=== PATIENT | female | born 1990 | race Caucasian/White ===

== ENCOUNTER → 2017-07-09 | Outpatient (CLI) | payer BC ==
[~2017-07-09] MED LIST: CEPH500C24 PO; INSU100V24 SQ; LANI SUBQ
--- NOTE | 2017-07-09 19:41 | RADIOLOGY IMAGING REPORT ---
FAC[facility] PATIENT NAME: Cari Angulo : 1990 MR: [id number] V: [id number] EXAM DATE: ORDERING PHYSICIAN: ANIBAL MÁRQUEZ TECHNOLOGIST: Location: [facility] Patient: Cari Angulo : 1990 Visit/Account:[id number] Date of Sevice: 07/09/2017 EXAMINATION: SOFT TISSUE NON-SPECIFIC HISTORY: Left orbit soft tissue mass, discoloration in medial corner of eye, near nose, for 3 days. COMPARISON: None. FINDINGS: Grayscale and color Doppler ultrasound was performed of the left orbit. Comparison images o f the right orbit were also obtained. There is a focal hypoattenuating region in the soft tissues along the medial aspect of the upper eyel id and adjacent to the nose measuring 7 x 4 x 7 mm in the area of noted palpable lump. No discrete ab scess or definite mass is identified. IMPRESSION: There appears to be focal soft tissue swelling in the left medial periorbital soft tissues and adjace nt to the left side of the nose with no discrete abscess or definite mass identified. Report Dictated By: Abraham Nelson MD at 07/09/2017 7:28 PM Report E-Signed By: Abraham Nelson MD at 07/09/2017 7:37 PM WSN:[id number]
== END ==
LOC: US 18:12
PROVIDERS: ATTEND Nurse Practitioner Family
DX: R22.0 Localized swelling, mass and lump, head (principal)
CPT/HCPCS: 76999